=== PATIENT | female | born 1955 | race Caucasian/White ===

== ENCOUNTER 2019-04-25 12:33 | Outpatient (CLI) | payer MEDICARE | END 2019-04-25 23:59 | disposition home or self-care (01) | LOC: CFH 12:33 → EDSTATUS 12:45 → CFH 23:59 | PROVIDERS: ATTEND Family Medicine | DX: M85.88 Other specified disorders of bone density and structure, other site (principal); N95.9 Unspecified menopausal and perimenopausal disorder; R22.1 Localized swelling, mass and lump, neck | CPT/HCPCS: 76536; 77080 ==